=== PATIENT | female | born 1975 | race Caucasian/White ===

== ENCOUNTER → 2024-10-27 | Outpatient (CLI) | payer BC, SELFPAY ==
[2024-10-27 13:06] LABS: Basophils # (Auto) 0.1 Thou/mm3 (0.0-0.2); Basophils % (Auto) 1 % (0-2.5); Eosinophils # (Auto) 0.3 Thou/mm3 (0.0-0.5); Eosinophils % (Auto) 3 % (0-10); Hematocrit 37.1 % (36.0-46.0); Immature Granulocytes % (Auto) 1 % (0-0); Immature Granulocytes Auto 0.05 Thou/mm3 (0.00-0.00); Lymphocytes # (Auto) 2.1 Thou/mm3 (1.0-4.8); Lymphocytes % (Auto) 24 % (10-50); Mean Corpuscular HGB Conc 32.3 g/dl (31.0-37.0); Mean Corpuscular Hemoglobin 27.7 pg (25.0-35.0); Mean Corpuscular Volume 86 fL (80-100); Monocytes # (Auto) 0.5 Thou/mm3 (0.0-0.8); Monocytes % (Auto) 6 % (0-12); Neutrophils # (Auto) 5.8 Thou/mm3 (1.8-7.7); Neutrophils % (Auto) 66 % (37-80); Nucleated Red Blood Cell % 0 /100 WBC (0); Platelet Count 325 Thou/mm3 (140-440); RDW Standard Deviation 44.8 fL (36.4-46.3); Red Blood Count 4.33 Miln/mm3 (4.00-5.20); White Blood Count 8.8 Thou/mm3 (3.6-11.0)
[2024-10-27 13:17] LABS: Glucose Estimated Average 114 mg/dL (80-131); Hemoglobin A1C 5.6 % Hgb (4.8-6.0)
[2024-10-27 13:24] LABS: Folate 13.23 ng/mL (>5.38); Vitamin B12 448 pg/mL (211-911)
[2024-10-27 13:38] LABS: Alanine Aminotransferase 20 U/L (10-49); Albumin, Serum 4.1 gm/dL (3.5-5.0); Albumin/Globulin Ratio 1.6 (1.2-2.2); Alkaline Phosphatase 57 U/L (46-116); Anion Gap 8 (7-16); Aspartate Amino Transferase 20 U/L (0-34); BUN/Creatinine Ratio 11 Ratio (12-20); Bilirubin,Total 0.4 mg/dL (0.3-1.2); Blood Urea Nitrogen 8 mg/dL (9-23); Calcium 8.7 mg/dL (8.3-10.6); Calcium (Corrected) 8.7 mg/dL (8.5-10.1); Carbon Dioxide 25.1 mMol/L (20.0-31.0); Cardiac Risk Estimate 3.8 RATIO (3.7-5.6); Chloride 108 mMol/L (98-107); Cholesterol 163 mg/dL (132-200); Creatinine (Component) 0.7 mg/dL (0.6-1.3); Globulin 2.5 gm/dL (2.3-3.5); Glucose 95 mg/dL (74-106); HDL Cholesterol 43 mg/dL (40-60); LDL Cholesterol,Calculated 90 mg/dL (0-130); Osmolality,Calculated 279 (275-295); Sodium 141 mMol/L (136-145); Total Protein 6.6 gm/dL (5.7-8.2); Triglycerides 152 mg/dL (30-150); eGFR > 60 See Note
== END | disposition home or self-care (01) ==
PROVIDERS: PCP Family Medicine; Referring Provider Student in an Organized Health Care Education/Training Program; Visit Provider Student in an Organized Health Care Education/Training Program
DX: F41.9 Anxiety disorder, unspecified (principal); Z83.3 Family history of diabetes mellitus; Z82.49 Family history of ischemic heart disease and other diseases of the circulatory system
CPT/HCPCS: 36415; 80053; 80061; 82607; 82746; 83036; 84443; 85025